=== PATIENT | female | born 2005 | race Caucasian/White ===

== ENCOUNTER 2024-01-29 12:03 | Outpatient (CLI) | payer BC, MEDICAID, SELFPAY ==
--- NOTE | 2024-01-29 12:09 | US_ITS ---
WS: [id number] ULTRASOUND BREAST RIGHT TECHNIQUE: Ultrasound right breast focused area of concern. CLINICAL INFORMATION: R BREAST MASS COMPARISON: None. FINDINGS: Ultrasound RIGHT breast 11:00 position 4 cm the nipple. Gently lobulated ovoid hypoechoic nodule khadar uring 2.1 x 0.9 cm. Associated biopsy clip. This most likely represents a fibroadenoma or fibroadenol ipoma in a patient this age. Recommend correlation with outside pathology from prior biopsy. Recommend 6-month follow-up ultrasound to confirm stability versus additional ultrasound-guided biops y if patient or clinical concern. IMPRESSION: BI-RADS 3 probably benign Recommend 6-month follow-up RIGHT breast ultrasound Alternatively this could be further evaluated with ultrasound-guided biopsy for definitive diagnosis
== END 2024-01-29 12:04 | disposition home or self-care (01) ==
LOC: RAD 12:05
PROVIDERS: Family Provider Family Medicine; PCP Family Medicine; Visit Provider Family Medicine
DX: N63.10 Unspecified lump in the right breast, unspecified quadrant (principal)
CPT/HCPCS: 76642

== ENCOUNTER 2024-03-11 08:23 | Day surgery (SDC) | payer BC, MEDICAID, SELFPAY ==
[2024-03-11] VITALS (10 sets, daily range): BP systolic 114–140; BP diastolic 67–98; PULSE 73–90; RESP 14–18; TEMP 36.3–36.6; O2SAT 96–100; BMI 24.9
--- NOTE | 2024-03-11 08:47 | W.PM.OPSUD ---
Surgery/Procedure H&P Update DATE OF PROCEDURE: March 11, 2024 DATE H&P PERFORMED: 03/01/24 H&P UPDATE INFORMATION: I have reviewed H&P completed within last 30 days, I have examined patient prior to procedure and No changes to prior documentation PLANNED PROCEDURE: Operation Date: 03/11/24 09:55 Proposed Procedures p Excision of Breast Mass Breast Lumpectomy 44557, N63.10(Right) - Niranjan Garcia DO
--- NOTE | 2024-03-11 09:04 | ANES.PREANE2 ---
Pre-Anesthetic Assessment Height/Weight: Height 1.63 m Weight 65.771 kg Temp Pulse Resp BP Pulse Ox O2 Del Method 97.3 F L 90 16 114/68 100 Room Air 03/11/24 08:54 03/11/24 08:54 03/11/24 08:54 03/11/24 08:54 03/11/24 08:54 03/11/24 08:54 Operation Date: 03/11/24 09:55 Proposed Procedures p Excision of Breast Mass Breast Lumpectomy 07641, N63.10(Right) - Niranjan Garcia DO Familial anesthetic complications: none Was Beta Pedro taken within 24 hours: N/A Was Clonidine taken within 24 hours: N/A Last intake: Intake Last Liquid Date 03/10/24 Last Liquid Time 23:30 Last Solid Date 03/10/24 Last Solid Time 22:30 Social No alcohol and No tobacco Exam alert, oriented x 3, clear to auscultation bilaterally and regular rate & rhythm Airway Submandibular: within normal limits Cervical ROM: within normal limits Mallampati: Class II Dentition: full History/ROS No significant history except as noted Anesthetic Plan ASA status: 1 Anesthesia: General Medications/Allergies Home Medications Medication Instructions Recorded Confirmed Last Taken Type escitalopram oxalate 20 mg tablet 20 mg PO DAILY 03/01/24 03/10/24 03/09/24 13:00 History hydroxyzine HCl 10 mg tablet 25 mg PO DAILY 03/01/24 03/10/24 03/09/24 22:00 History Allergies Allergy/AdvReac Type Severity Reaction Status Date / Time Sulfa (Sulfonamide Allergy Intermediate rash Verified 03/11/24 08:52 Antibiotics) [facility] Anesthesia Family History Grandmother Breast cancer Grandfather Cancer Data Anesthesia Cardiac Studies: No Data to Display
[2024-03-11] MEDS: midazolam 1 mg/mL INJ 2 mL 2 MG IVP (09:08)
[2024-03-11] MEDS: sodium chloride 0.9% 1,000 ML 30 ML IV (09:18)
[2024-03-11 09:32] LABS: OR HCG Qualitative Urine Negative (Negative)
[2024-03-11] MEDS: ceFAZolin 2,000 MG in sodium chloride 0.9% (plus) 50 ML 100 MG IV (09:33)
[2024-03-11] MEDS: lidocaine-epi 2% PF 1:200,000 20 mL SDV INJECTION (09:56)
--- NOTE | 2024-03-11 10:14 | PM.OP ---
Operative Report Date of procedure: March 11, 2024 Pre-op diagnosis: Right breast mass, suspected fibroadenoma Post-op diagnosis: same Procedure done: Right breast lumpectomy Implants: None Specimens removed/disposition: Right breast lumpectomy Surgeon: Niranjan Garcia DO Anesthesia: General and Local Estimated blood loss (mL): 5 Complications: None apparent Brief History: This very pleasant 19-year-old female who presents my office with a painful right breast mass. Imaging findings were BI-RADS 3 and a biopsy more than year ago indicated fibroadenoma. Right breast effectiveness indicated. The risk benefits were explained and documented. Procedure: The patient was brought back into the operating room. She was placed on the OR table in the supine position. The Right breast was inspected prepped and draped in usual sterile fashion. A timeout was performed. All present were in agreement. A 10 blade scalpel was used to make a 3 cm circumareolar incision in the right upper quadrant of the right areola. Electrocautery was used to carve out a lumpectomy specimen. The entire palpable was removed and sent to pathology in formalin. Hemostasis was noted. The dermis was approximated with 3-0 Vicryl. The skin was closed with 4-0 Monocryl in a subcuticular and running fashion. Dermabond was applied. Patient tolerated the procedure well.
[2024-03-11] MEDS: HYDROcodone-acetaminophen 7.5-325 mg Tablet 1 TAB PO (11:35)
--- NOTE | 2024-03-11 13:50 | ANE.PACU2 ---
Inpatient post-anesthesia follow up: Airway intact: Yes Vital signs: Temperature 97.8 F Pulse Rate 79 Respiratory Rate 16 Blood Pressure 126/78 Pulse Oximetry 99 Oxygen Delivery Me thod Room Air Oxygen Flow Rate 6 Fraction of Inspir ed Oxygen Hydration adequate: Yes Nausea and vomiting: No Pain level: 2 Mental status: Baseline
== END 2024-03-11 11:50 | disposition home or self-care (01) ==
PROVIDERS: Anesthesiology; PCP Family Medicine; Visit Provider Surgery
PROC: (CPT 19120; principal; 2024-03-11 09:55)
DX: N63.10 Unspecified lump in the right breast, unspecified quadrant (principal)
CPT/HCPCS: 19301; 81025; 88307; J0690; J1100; J1885; J2250; J3010; J7030